=== PATIENT | female | born 1955 | race Caucasian/White ===

== ENCOUNTER → 2019-05-25 | Outpatient (CLI) | payer OTHER ==
--- NOTE | 2019-05-25 14:01 | RAD ---
Examination: ABDOMEN COMPLETE History: Elevated liver function enzymes Comparison/Correlation: None Findings: Fatty infiltration of the liver is present. Portal venous flow is normal. Common bile duct diameter is 0.7 cm. No intrahepatic biliary dilatation. Cholecystectomy noted. Right kidney measures 10 cm x 5.2 cm x 5.3 center. Left kidney measures 11.2 cm x 5.2 cm 6.5 cm. No hydronephrosis. Renal echotexture is unremarkable. Proximal pancreas is normal. Distal pancreas is obscured by bowel gas. Spleen is unremarkable. Abdominal aortic diameter is unremarkable measuring up to 1.9 cm proximally. Inferior vena cava is unremarkable. Impression: Fatty infiltration of liver. Electronically signed by: Jose De Jesus Tubbs MD (05/25/2019 1:58 PM) [facility]
== END | disposition home or self-care (01) ==
LOC: US 08:54
PROVIDERS: ATTEND Family Medicine
DX: K76.0 Fatty (change of) liver, not elsewhere classified (principal)
CPT/HCPCS: 76700